=== PATIENT | female | born 1990 | race Caucasian/White ===

== ENCOUNTER 2021-09-26 03:32 | Inpatient (IN) | payer OTHER ==
[~2021-09-26 03:32] MED LIST: BUTORPHANOL 1 MG/ML INJ IV PRN; CARBOPROST TROME 250 MCG/ML IM PRN; MEPERIDINE HCL 25 MG/ML SYR IV PRN; METHYLERGONOVINE 0.2MG/ML AMP IM PRN; PROMETHAZINE INJ 25 MG/ML AMP IM PRN; Ringers Lactate 1,000 ML IV SCH
[2021-09-26] MEDS ORDERED: OXYTOCIN/LR 20 UNIT/1,000 ML BAG IV SCH ×2 (04:00→15:00)
[2021-09-26] MEDS: Ringers Lactate 1,000 ML IV PRN ×2 (04:35→13:00)
[2021-09-26 05:28] VITALS: O2SAT 100; BMI 31.4
[2021-09-26 05:34] LABS: Absolute Lymphocytes (CBC) 1.4 K/uL (0.7-4.9); Basophils % 0.5 % (0-1.3); Hematocrit 39.5 % (36.0-45.0); MPV 8.4 fL (7.6-11.3); RBC Red Blood Cell Count 4.21 M/uL (3.86-4.86)
[2021-09-26 05:38] LABS: Urine Appearance CLOUDY (Clear); Urine Bilirubin NEGATIVE (Negative); Urine Blood NEGATIVE (Negative); Urine Color YELLOW (Yellow); Urine Glucose NEGATIVE (Negative); Urine Protein NEGATIVE (Negative); Urine Urobilinogen 0.2 mg/dL (0.2-1.0)
[2021-09-26 06:01] LABS: Urine Bacteria <20 /HPF (<20); Urine RBC <5 /HPF (NONE SEEN)
[2021-09-26 06:02] LABS: Urine Mucus 1+ /HPF (NONE SEEN)
[2021-09-26 06:03] LABS: Urine Yeast FEW (NONE SEEN)
[2021-09-26] MEDS ORDERED: ROPIVACAINE HCL 0.2% 20ML AMP IV ONE (07:32)
[2021-09-26] MEDS ORDERED: FENTANYL CITR 100 MCG/2 ML IV ONE (07:32)
[2021-09-26] MEDS ORDERED: FENTANYL/BUPIVACAINE/NS/PF 200 MCG/100 ML BAG EP PRN (07:32)
[2021-09-26] MEDS ORDERED: LIDOCAINE 1% MPF 30 ML VIAL SQ ONE (10:30)
[2021-09-26] MEDS ORDERED: ROPIVACAINE HCL 100 ML EP ONE (11:15)
--- NOTE | 2021-09-26 13:42 | PN ---
The patient is ailin every 2 minutes. We have gone to 22 milliunits. Baby looks good. Fluid looks clear now instead of light meconium-like initially. She is about almost a +1 station. I had t he patient push a couple of times to see if she can reduce the cervix, but still anterior lip, so we will just wait a few more minutes for it to come down further and then begin pushing. LUCILLE/NAT Voice ID: [id number] Report ID: [id number]
[2021-09-26] MEDS ORDERED: CEFAZOLIN/NS 1gm 1 GM/50 ML BAG ONE (14:32)
[2021-09-26] MEDS ORDERED: Oxycodone HCl/Acetaminophen 1 TAB TAB PO PRN ×2 (14:41)
[2021-09-26] MEDS ORDERED: DOCUSATE NA/SENNA CONC 1 TAB PO PRN (14:41)
[2021-09-26] MEDS ORDERED: DIPHENHYDRAMINE 25 MG TAB/CAP PO PRN (14:41)
[2021-09-26] MEDS ORDERED: BISACODYL 10 MG RECTAL SUPP PR PRN (14:41)
[2021-09-26] MEDS ORDERED: IBUPROFEN 600 MG TAB PO PRN (14:47)
[2021-09-26] MEDS: METHYLERGONOVINE 0.2 MG TAB PO SCH ×2 (15:40→20:26)
[2021-09-26] MEDS: ACETAMINOPHEN 500 MG TAB PO PRN ×2 (15:44→20:26)
[2021-09-26] MEDS ORDERED: CARBOPROST TROME 250 MCG/ML IM ONE (17:02)
[2021-09-26 21:07] LABS: RPR (Rapid Plasma Reagin) NON-REACT (NON-REACT)
[2021-09-27] MEDS: METHYLERGONOVINE 0.2 MG TAB PO SCH ×2 (00:19→04:19)
[2021-09-27 08:55] VITALS: TEMP 98.2
[2021-09-27 13:13] VITALS: BP 123/75
--- NOTE | 2021-09-30 11:30 | OP ---
Surgeon: Stephen Mcqueen MD Procedure In Detail: A 31-year-old, 3, para 1, 39 weeks, admitted for induction. Rupture of membrane this morning. Light meconium noted. FHTs normal, reactive throughout the labor. Received epidural anesthesia after 1 mg Stadol and Phenergan 25 mg IM. Second stage after achieving complete dilation of only 10 to 15 minutes approximately. Spontaneous vaginal delivery of an 8 pounds 7 ounce female. Loose nuchal cord x2. Light meconium but staining of the vernix with meconium. Apgars 8 and 9. Upper lungs somewhat congested sounding. Dr. Munoz notified. Baby is doing quite well. After delivery of the placenta, mild uterine hypotonus, 0.2 mg of Methergine IM as well as IV drip Pitocin massage. Estimated blood loss 400 to 425 cc. Strep negative. The patient given 1 g of Ancef secondary to fecal contamination during the second stage of labor. No direct contamination of the episiotomy _but feces in the vicinity. Final Diagnoses: Term intrauterine 39 weeks. Vaginal delivery. Epidural anesthesia. Mild uterine hypertonus. Nuchal cord x2. NBC/MODL Voice ID: [id number] Report ID: [id number] ANGIE
--- NOTE | 2021-09-30 11:30 | PN ---
Paulina Harrell is now very comfortable. In fact, she cannot feel the contractions, ailin every 2-3 minutes. She is now 7 to 7.5 cm. Baby is occiput posterior, about 0 station. She will start pe lvic rocks with the contraction and see if we can get the rotation to occur, and I think if that happ ens, the delivery will speed up. Full discussion. Fluid continues to show basically minimal meconiu m. No significant decelerations. Anticipate full dilation reasonably soon. LUCILLE/NAT Voice ID: [id number] Report ID: [id number]
--- NOTE | 2021-09-30 11:33 | PREOPHP ---
Date of Admission: 09/26/2021 History Of Present Illness: A 31-year-old 3, para 1, 39 weeks gestation, followed antepartum without complications. Rh positive, immune to rubella, negative strep, negative COVID at this point . Pros and cons of induction thoroughly discussed prior to admission. Family History: Mother and father with hypertension. Father with stroke. Otherwise noncontributory . Past Medical History: No serious medical illnesses. Past Surgical History: No previous surgeries. Allergies: NO ALLERGIES. Medications: vitamins prior to admission. Social History: Does not smoke. Physical Examination: HEENT: Clear. Pupils equal, round, and reactive to light and accommodation. Conjunctivae well perf used. No oral, lingual, or buccal lesions. Chest and Lungs: Clear. Heart: Without murmurs, thrills, heaves, or rubs. Breasts: Without masses. Abdomen: Term size. Extremities: Clear without edema, cyanosis, or clubbing. Pelvic: 3.5 cm, 70% effaced vertex, -1 station. Rupture of membranes very light meconium, no partic ulate matter noted. FHTs normal and reactive at this point. Assessment And Plan: Full discussion with patient and . Anticipate more active labor sometim e next hours or so, the patient is still undecided whether she will go natural or request epidural. When she gets an active labor, I th ink we will see rapid progress. LUCILLE/NAT Voice ID: [id number]
== END 2021-09-27 15:15 | disposition home or self-care (01) | DRG 807 ==
LOC: 2ND-WC 03:32
PROVIDERS: ADMIT Specialist; ATTEND Specialist
PROC: 10907ZC Drainage of Amniotic Fluid, Therapeutic from Products of Conception, Via Natural or Artificial Opening (ICD-10-PCS; principal; 2021-09-26)
PROC: 10E0XZZ Delivery of Products of Conception, External Approach (ICD-10-PCS; 2021-09-26)
PROC: 0KQM0ZZ Repair Perineum Muscle, Open Approach (ICD-10-PCS; 2021-09-26)
DX: O70.1 Second degree perineal laceration during delivery (principal); Z37.0 Single live birth; O62.2 Other uterine inertia; O69.81X0 Labor and delivery complicated by cord around neck, without compression, not applicable or unspecified; O77.0 Labor and delivery complicated by meconium in amniotic fluid; Z3A.39 39 weeks gestation of pregnancy; Z20.822 Contact with and (suspected) exposure to COVID-19
CPT/HCPCS: 36415; 81001; 85014; 85025; 86592; 86901; 87086; 87088; 87340; J0595; J0690; J2210; J2550; J2590; J2795; J3010; J7120; U0002